=== PATIENT | male | born 1985 | race African-American/Black ===

== ENCOUNTER 2021-02-15 12:54 | Emergency (ER) | payer OTHER ==
[~2021-02-15] VITALS: Ht 182.9 cm; Wt 79.5 kg
[2021-02-15 14:55] VITALS: BP 131/92
== END 2021-02-15 14:58 | disposition home or self-care (01) ==
LOC: EDBD 12:54 → ED 12:54
DX: S50.11XA Contusion of right forearm, initial encounter (principal); Z87.891 Personal history of nicotine dependence; W11.XXXA Fall on and from ladder, initial encounter
CPT/HCPCS: J1885